=== PATIENT | female | born 1985 | race Caucasian/White ===

== ENCOUNTER 2017-06-04 06:49 | Emergency (ER) | payer OTHER ==
[~2017-06-04] VITALS: Ht 152.4 cm; Wt 70.8 kg
[2017-06-04] MEDS ORDERED: IBUPROFEN600 MG PO (07:16)
[2017-06-04] MEDS ORDERED: PSEUDOEPHEDRINE30 MG PO (07:16)
[2017-06-04] MEDS ORDERED: PREDNISONE20 MG PO (07:16)
== END 2017-06-04 07:52 | disposition home or self-care (01) ==
LOC: ED 06:49
DX: H69.92 Unspecified Eustachian tube disorder, left ear (principal); H92.02 Otalgia, left ear; F17.200 Nicotine dependence, unspecified, uncomplicated; Z88.2 Allergy status to sulfonamides
CPT/HCPCS: 96372; 99283; J1885; J7512